=== PATIENT | female | born 1990 | race Asian ===

== ENCOUNTER 2023-02-05 21:41 | Outpatient (CLI) | payer OTHER ==
[~2023-02-05] VITALS: Ht 162.6 cm; Wt 66.9 kg
[2023-02-05] MEDS ORDERED: PRENTAB9 PO (21:55)
[2023-02-05] MEDS ORDERED: HOME MED LIST COMPLETE! XX SCH (22:00)
[2023-02-05 22:03] VITALS: BP 133/81
[2023-02-05] MEDS: LACTATED RINGER'S 1000 ML IV ONE ×2 (22:50→22:51)
[2023-02-05 22:58] VITALS: BP 126/72
[2023-02-05 23:13] LABS: HEMATOCRIT 40.4 % (36.0-47.0); HEMOGLOBIN 12.9 g/dl (12.0-15.5); MEAN CORPUSCULAR HEMOGLOBIN 27.9 pg (27.0-33.0); MEAN CORPUSCULAR HGB CONC 31.9 g/dl (32.0-36.5); MEAN CORPUSCULAR VOLUME 87.3 fl (80.0-96.0); PLATELET COUNT, AUTOMATED 122 10^3/uL (150-450); RED BLOOD COUNT 4.63 10^6/uL (4.00-5.40); WHITE BLOOD COUNT 9.2 10^3/uL (4.0-10.0)
[2023-02-06 00:18] VITALS: BP 113/67
== END 2023-02-06 01:05 | disposition home or self-care (01) ==
LOC: M LDO 21:41
PROVIDERS: ATTEND Obstetrics & Gynecology
DX: O47.1 False labor at or after 37 completed weeks of gestation (principal); Z3A.38 38 weeks gestation of pregnancy; O34.211 Maternal care for low transverse scar from previous cesarean delivery
CPT/HCPCS: 59025; 85027; 86850; 86900; 86901; G0463

== ENCOUNTER 2023-02-09 05:13 | Inpatient (IN) | payer OTHER ==
[~2023-02-09] VITALS: Ht 162.6 cm; Wt 66.4 kg
[2023-02-09] VITALS (8 sets, daily range): BP systolic 101–133; BP diastolic 55–75
[~2023-02-09 05:13] MED LIST: PRENTAB9 PO
[2023-02-09] MEDS ORDERED: LACTATED RINGER'S 1000 ML IV STA (06:51)
[2023-02-09] MEDS ORDERED: TRANEXAMIC ACID INJection 1,000 MG in NS 100 ML IV PRN (06:55)
[2023-02-09] MEDS ORDERED: OXYTOCIN DRIP 30 UNITS in IV 1 EA IV PRN ×4 (06:55)
[2023-02-09] MEDS ORDERED: CARBOPROST TROMETHAMINE 250 MCG/ML AMP IM PRN (06:55)
[2023-02-09] MEDS ORDERED: METHYLERGONOVINE MALEATE 0.2MG/ML 1ML VIAL IM PRN (06:55)
[2023-02-09] MEDS ORDERED: BICITRA 30ML SOLN UDC PO ONE (07:00)
[2023-02-09] MEDS ORDERED: ceFAZolin SOD 2 GM in IV 1 EA IV ONE (07:00)
[2023-02-09] MEDS ORDERED: COLA100C5 PO (07:22)
[2023-02-09] MEDS ORDERED: IRON65TA2 PO (07:22)
[2023-02-09] MEDS ORDERED: VITA250T4 PO (07:22)
[2023-02-09] MEDS ORDERED: HOME MED LIST COMPLETE! XX SCH (07:25)
[2023-02-09 07:34] LABS: HEMATOCRIT 40.5 % (36.0-47.0); HEMOGLOBIN 12.8 g/dl (12.0-15.5); MEAN CORPUSCULAR HGB CONC 31.6 g/dl (32.0-36.5); MEAN CORPUSCULAR VOLUME 88.6 fl (80.0-96.0); PLATELET COUNT, AUTOMATED 133 10^3/uL (150-450); RED BLOOD COUNT 4.57 10^6/uL (4.00-5.40); WHITE BLOOD COUNT 10.3 10^3/uL (4.0-10.0)
[2023-02-09] MEDS ORDERED: **NOTE PATIENT COMMENT** MISC XX SCH (08:15)
[2023-02-09] MEDS ORDERED: ONDANSETRON 4MG 2ML VIAL IV PRN (08:15)
[2023-02-09] MEDS ORDERED: NALOXONE INJ 0.4MG/1ML VIAL IV PRN ×2 (08:15)
[2023-02-09] MEDS ORDERED: SLF 3 ML SYR IV SCH (08:15)
[2023-02-09] MEDS ORDERED: MEPERIDINE 25 MG/ML 1ML VIAL IV PRN (08:15)
[2023-02-09] MEDS ORDERED: diphenhydrAMINE 50MG/ML VIAL IV PRN (08:15)
[2023-02-09] MEDS ORDERED: METOCLOPRAMIDE INJ 10MG/2ML VIAL IV PRN (08:15)
[2023-02-09] MEDS ORDERED: fentaNYL 100 MCG/2 ML INJECTION IV PRN (08:15)
[2023-02-09] MEDS ORDERED: HYDROMORPHONE HCL 0.5 MG/ 0.5 ML SYRINGE IV PRN (08:15)
[2023-02-09] MEDS ORDERED: oxyCODONE 5MG TAB PO PRN ×2 (08:15→09:40)
[2023-02-09] MEDS: LR 1,000 ML IV SCH ×3 (08:27→22:55)
[2023-02-09] MEDS ORDERED: MORPHINE PRES-FREE INJ 10 MG/10 ML VIAL As Ordered ONE (08:50)
[2023-02-09] MEDS ORDERED: OXYTOCIN INJ 10UNITS/ML 1ML VIAL As Ordered ONE (08:50)
[2023-02-09] MEDS ORDERED: PHENYLephrine 500MCG 5ML (100MCG/ML) SYRINGE As Ordered ONE (08:50)
[2023-02-09] MEDS ORDERED: fentaNYL 100 MCG/2 ML INJECTION As Ordered ONE (08:50)
[2023-02-09] MEDS: PRENATAL VITAMINS CHEWABLE TABLET PO SCH (09:00)
[2023-02-09] MEDS ORDERED: ACETAMINOPHEN 1000MG 100ML IV BAG As Ordered ONE (09:03)
[2023-02-09] MEDS ORDERED: KETOROLAC 60MG 2ML VIAL As Ordered ONE (09:13)
[2023-02-09] MEDS ORDERED: SIMETHICONE 80MG CHEW TAB PO PRN (09:40)
[2023-02-09] MEDS ORDERED: RHOGAM 300MCG (1500IU) INJ IM SCH (09:40)
[2023-02-09] MEDS ORDERED: MOM 30ML SUSPENSION UDC PO PRN (09:40)
[2023-02-09] MEDS ORDERED: ACETAMINOPHEN 500 MG TAB PO PRN (09:40)
[2023-02-09] MEDS ORDERED: OXYTOCIN 30UNITS IN 0.9% NaCl 500ML IV BAG As Ordered ONE (10:04)
[2023-02-09 10:08] LABS: CORD GAS ABE V -2.7; CORD GAS HCO3 V 23.7 MEQ/L; CORD GAS O2 SAT V 68.9 %; CORD GAS PCO2 V 46.9 mmHg; CORD GAS PH V 7.322 UNITS; CORD GAS PO2 V 34.3 mmHg; CORD GAS SBC V 21.5 MEQ/L; CORD GAS TCO2 V 25.2 MEQ/L
[2023-02-09 10:10] LABS: CORD GAS ABE A -6.1; CORD GAS HCO3 A 18.9 MEQ/L; CORD GAS O2 SAT A 99.6 %; CORD GAS PCO2 A 36.5 mmHg; CORD GAS PH A 7.333 UNITS; CORD GAS PO2 A 143.8 mmHg; CORD GAS SBC A 19.6 MEQ/L; CORD GAS TCO2 A 20.1 MEQ/L
[2023-02-09] MEDS: KETOROLAC 30 MG/ML 1ML VIAL IV SCH ×2 (15:08→21:16)
[2023-02-10 02:00] VITALS: BP 118/70
[2023-02-10] MEDS: KETOROLAC 30 MG/ML 1ML VIAL IV SCH (03:44)
[2023-02-10 06:00] VITALS: BP 105/56
[2023-02-10 08:35] LABS: HEMATOCRIT 33.6 % (36.0-47.0); MEAN CORPUSCULAR HEMOGLOBIN 28.1 pg (27.0-33.0); MEAN CORPUSCULAR HGB CONC 31.5 g/dl (32.0-36.5); MEAN CORPUSCULAR VOLUME 89.1 fl (80.0-96.0); PLATELET COUNT, AUTOMATED 106 10^3/uL (150-450); RED BLOOD COUNT 3.77 10^6/uL (4.00-5.40); WHITE BLOOD COUNT 6.9 10^3/uL (4.0-10.0)
[2023-02-10 08:38] LABS: HEMOGLOBIN 10.6 g/dl (12.0-15.5)
[2023-02-10] MEDS: PRENATAL VITAMINS CHEWABLE TABLET PO SCH (09:22)
[2023-02-10 10:00] VITALS: BP 140/84
[2023-02-10] MEDS: IBUPROFEN 800 MG TAB PO SCH ×2 (11:19→18:27)
[2023-02-10 14:00] VITALS: BP 111/63
[2023-02-10] MEDS: oxyCODONE 5MG TAB PO PRN (16:04)
[2023-02-10 18:00] VITALS: BP 110/67
[2023-02-10 22:00] VITALS: BP 107/63
[2023-02-11] MEDS: oxyCODONE 5MG TAB PO PRN (00:36)
[2023-02-11 02:00] VITALS: BP 109/56
[2023-02-11] MEDS: IBUPROFEN 800 MG TAB PO SCH ×2 (03:06→11:19)
[2023-02-11 06:00] VITALS: BP 108/63
[2023-02-11] MEDS ORDERED: MEASLES,MUMPS,RUBELLA VACCINE INJ (MMR-II) SC.IMMUN ONE (09:00)
[2023-02-11 10:00] VITALS: BP 122/76
[2023-02-11] MEDS: PRENATAL VITAMINS CHEWABLE TABLET PO SCH (10:52)
== END 2023-02-11 13:58 | disposition home or self-care (01) | DRG 772 ==
LOC: M LDO 05:13 → M LDI 06:54 → M OBS 11:10
PROVIDERS: ADMIT Obstetrics & Gynecology; ATTEND Obstetrics & Gynecology
PROC: 10D00Z1 Extraction of Products of Conception, Low, Open Approach (ICD-10-PCS; principal; 2023-02-09 08:00)
DX: O34.211 Maternal care for low transverse scar from previous cesarean delivery (principal); O41.03X0 Oligohydramnios, third trimester, not applicable or unspecified; Z3A.39 39 weeks gestation of pregnancy; O99.02 Anemia complicating childbirth; D64.9 Anemia, unspecified; Z37.0 Single live birth; O77.0 Labor and delivery complicated by meconium in amniotic fluid

== ENCOUNTER 2024-11-13 21:36 | Emergency (ER) | payer OTHER ==
[~2024-11-13] VITALS: Ht 154.9 cm; Wt 53.8 kg
[~2024-11-13 21:36] MED LIST changes: +COLA100C5 PO; +IRON65TA2 PO; +VITA250T27 PO
[2024-11-14 00:36] VITALS: BP 120/75; TEMP 98.4; O2SAT 100
== END 2024-11-14 00:50 | disposition home or self-care (01) ==
LOC: M ED 21:36
DX: J06.9 Acute upper respiratory infection, unspecified (principal); Z88.1 Allergy status to other antibiotic agents; Z88.8 Allergy status to other drugs, medicaments and biological substances; Z79.810 Long term (current) use of selective estrogen receptor modulators (SERMs)